=== PATIENT | male | born 1975 | race Caucasian/White ===

== ENCOUNTER 2020-03-30 06:44 | Emergency (ER) | payer BC ==
[~2020-03-30] VITALS: Ht 172.7 cm; Wt 86.2 kg
[2020-03-30 06:48] VITALS: Ht 172.7 cm; Wt 86.2 kg
[2020-03-30 08:17] LABS: CALCIUM 8.4 mg/dL (8.5-10.1); CARBON DIOXIDE 21.8 mmol/L (21-32); CHLORIDE SERUM 100 mmol/L (98-107); CREATININE SERUM 0.8 mg/dL (0.7-1.3); GFR1 > 60 mL/min; GLUCOSE SERUM 324 mg/dL (74-106); POTASSIUM SERUM 4.1 mmol/L (3.5-5.1); SODIUM SERUM 138 mmol/L (136-145)
[2020-03-30 08:23] LABS: ALBUMIN 4.1 g/dL (3.4-5.0); ALKALINE PHOSPHATASE 118 U/L (46-116); ALT/SGPT 63 U/L (16-63); AST/SGOT 28 U/L (15-37); BILIRUBIN TOTAL 0.3 mg/dL (0.20-1.00); TOTAL PROTEIN, SERUM 7.1 g/dL (6.4-8.2)
[2020-03-30 08:45] VITALS: BP 119/73
== END 2020-03-30 08:45 | disposition other institution (70) ==
LOC: ED 06:44
PROVIDERS: Emergency Medicine
DX: E11.65 Type 2 diabetes mellitus with hyperglycemia (principal); I10 Essential (primary) hypertension
CPT/HCPCS: 82962; J1815

== ENCOUNTER 2020-03-30 06:44 | Emergency (ER) | payer OTHER | END 2020-03-30 08:45 | disposition other institution (70) | LOC: ED 06:44 | DX: Z02.89 Encounter for other administrative examinations (principal) ==